=== PATIENT | male | born 1995 | race Caucasian/White ===

== ENCOUNTER 2016-06-10 18:11 | Emergency (ER) | payer BC ==
[2016-06-11] MEDS ORDERED: LEVAQUIN 750MG750 M1 PO (00:14)
== END 2016-06-11 02:00 | disposition home or self-care (01) ==
LOC: ED 18:11
DX: J18.9 Pneumonia, unspecified organism (principal)
CPT/HCPCS: J1956; J2405; J7030

== ENCOUNTER → 2016-06-10 | Outpatient (CLI) | payer BC ==
[~2016-06-10] MED LIST: LEVAQUIN 750MG750 M1 PO
== END ==
LOC: LAB 17:29
DX: R05 Cough (principal)

== ENCOUNTER → 2023-10-17 | Outpatient (CLI) | payer OTHER ==
[2023-10-17 12:55] LABS: BASO # 0.02 K/mm3 (0.02-0.10); EOS # 0.16 K/mm3 (0.04-0.40); EOS % 1.9 % (0.0-4.0); HEMATOCRIT 48.1 % (42.0-52.0); MEAN CELL VOLUME 88 fl (78-100); MEAN CORPUSCULAR HEMOGLOBIN 29 pg (27-31); MEAN CORPUSCULAR HGB CONC 33 g/dL (33-37); MEAN PLATELET VOLUME 11.2 fl (7.4-10.4); MONO # 0.43 K/mm3 (0.20-0.80); NEU # 6.15 K/mm3 (1.40-6.50); PLATELET COUNT 291 K/mm3 (130-400); RED BLOOD COUNT 5.44 M/mm3 (4.20-5.60); RED CELL DISTRIBUTION WIDTH 12.9 % (11.5-14.5); WHITE BLOOD COUNT 8.5 K/mm3 (4.8-10.8)
[2023-10-17 13:03] LABS: ALBUMIN 4.5 g/dL (3.5-5.0)
[2023-10-17 13:04] LABS: CALCIUM 9.5 mg/dL (8.3-10.5)
[2023-10-17 13:06] LABS: TOTAL PROTEIN 6.8 g/dL (6.4-8.3)
[2023-10-17 13:08] LABS: TOTAL BILIRUBIN 0.4 mg/dL (0.2-1.2)
== END ==
LOC: LAB 12:37
PROVIDERS: Nurse Practitioner Family
DX: R19.7 Diarrhea, unspecified (principal)